=== PATIENT | female | born 1985 | race Caucasian/White ===

== ENCOUNTER 2016-09-13 16:06 | Emergency (ER) | payer MEDICAID ==
[~2016-09-13] VITALS: Ht 160 cm; Wt 54.4 kg
[~2016-09-13 16:06] MED LIST: DICL75TA2 PO; HYDR-3820; PRD20T PO; VENL150C98
--- OUTSIDE RECORDS SUMMARY | 2016-09-13 16:11 | XMS REPORT | Continuity of Care Document ---
Author Author [facility] Organization [facility] Address Unknown Phone Unavailable Care Team Providers Care [place] Name Role Phone NO, LOCAL PHYSICIAN PCP Unavailable Insurance Providers Payer Name Policy Number Subscriber Name Relationship Medicaid Out Of State [id number] Rowena Bills 20 Self / Same As Patient Advance Directives Directive Response Recorded Date/Time Advance Directives No 09/05/16 3:23pm Resuscitation Status Full Code 09/05/16 3:23pm Chief Complaint and Reason for Visit Chief Complaint Upper Extremity Reason for Visit [id number] Problems Active Problems Medical Problem Onset Date Status Tendonitis of right hand Unknown Acute Medications Current Home Medications Medication Dose Units Route Directions Days/Qty Instructions Start Date Venlafaxine Hcl 150 Mg 30 09/05/16 Hydrocodone/Acetaminophen 1 Each 93 09/05/16 Prednisone 20 Mg 40 Mg Oral Daily 10 09/05/16 Diclofenac Sodium 75 Mg 75 Mg Oral Twice A Day as needed for Pain 20 09/05/16 Social History Social History Problem Response Recorded Date/Time Alcohol Use Denies Use 09/05/2016 3:23pm Recreational Drug Use No 09/05/2016 3:23pm Recent Foreign Travel No 09/05/2016 3:17pm Recent Infectious Disease Exposure No 09/05/2016 3:17pm Hospitalization with Isolation Denies 09/05/2016 3:17pm Sexually Transmitted Disease No 09/05/2016 3:23pm HIV/AIDS No 09/05/2016 3:23pm Smoking Status Current Everyday Smoker 09/05/2016 3:23pm Recent Hopitalizations No 09/05/2016 3:23pm Sexually Transmitted Disease No 09/05/2016 3:23pm Hospitalization with Isolation Denies 09/05/2016 3:17pm Query Response Start Date Stop Date Smoking Status Current Everyday Smoker Hospital Discharge Instructions No hospital discharge instructions. Plan of Care Discharge Date 09/05/16 4:33pm Disposition 01 HOME, SELF-CARE Condition at Discharge Improved Instructions/Education Provided Tendonitis (DC) Hand Pain (DC) Forms Provided Work Release Form Prescriptions See Medication Section Referrals NO,LOCAL PHYSICIAN - Primary Care Physician Additional Instructions/Education All discharge instructions reviewed with patient and/or family. Voiced understanding. Medications as directed. Continue usual home medications. Elevate the rt hand on pillows. Ice pack or heating pad as needed for pain. Sandeep wrap for pain. Follow-up with your family practitioner for recheck if no improvement in symptoms. Return to the emergency department for worsened pain, numbness, discoloration, or any other concerns. Functional Status No functional status results. Allergies, Adverse Reactions, Alerts No known allergies. Immunizations No immunization records. Vital Signs Acute Vital Signs Vital Response Date/Time Temperature (Fahrenheit) 97.6 degrees F (97.6 - 99.5) 09/05/2016 3:17pm Temperature (Calculated Celsius) 36.29215 degrees C (36.4 - 37.5) 09/05/2016 3:17pm Temperature Source Temporal 09/05/2016 3:17pm Pulse Rate (adult) 74 bpm (60 - 90) 09/05/2016 3:17pm Respiratory Rate 18 bpm (12 - 24) 09/05/2016 3:17pm Blood Pressure 120/77 mm Hg 09/05/2016 3:17pm Blood Pressure Mean 91 mm Hg 09/05/2016 3:17pm Pain Numeric Pain Scale 7 09/05/2016 3:17pm Height (Feet) 5 feet 09/05/2016 3:17pm Height (Calculated Centimeters) 152.494944 cm 09/05/2016 3:17pm Weight (Pounds) 130 pounds 09/05/2016 3:17pm Weight (Calculated Kilograms) 58.852609 kilograms 09/05/2016 3:17pm Capillary Refill Capillary Refill Less Than 3 Seconds 09/05/2016 3:17pm Height 5 ft 0 in Weight 130 lb Body Mass Index 25.4 kg/m^2 Results No known relevant diagnostic tests, laboratory data and/or discharge summary. Procedures No known history of procedures. Encounters Encounter Location Arrival/Admit Date Discharge/Depart Date Attending Provider Registered Emergency Room [facility] 09/05/16 3:05pm KAMLA HOPE Recent Diagnosis
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
[2016-09-13] MEDS ORDERED: ACETAMINOPHEN 500 MG TAB (TYLENOL) PO ONE (16:15)
--- NOTE | 2016-09-13 16:31 | Diagnostic Imaging Report ---
PROCEDURE: CT head without contrast. TECHNIQUE: Multiple contiguous axial images were obtained through the brain without the use of intravenous contrast. INDICATION: Headache on the left side status post injury . FINDINGS: There is no intracranial hemorrhage, edema or mass effect. The brain parenchyma appears unremarkable. No hydrocephalus. The visualized portions of the orbits and paranasal sinuses appear unremarkable. IMPRESSION: Unremarkable study. Dictated by: Dictated on workstation # [id number]
[2016-09-13 16:44] VITALS: BP 128/77
== END 2016-09-13 16:44 | disposition home or self-care (01) ==
LOC: EDUNIT# 16:06 → ER 16:08
DX: S06.0X0A Concussion without loss of consciousness, initial encounter (principal); W22.8XXA Striking against or struck by other objects, initial encounter; Y99.8 Other external cause status
CPT/HCPCS: 70450